=== PATIENT | male | born 1985 | race Caucasian/White ===

== ENCOUNTER 2016-11-14 22:23 | Emergency (ER) | payer SELFPAY ==
[~2016-11-14 22:23] MED LIST: NORCO 5/325 TAB1 TAB PO
[2016-11-14 23:08] LABS: BASO % 0.2 % (0-2); EOS % 0.7 % (0-7); EOSINOPHIL ABSOLUTE COUNT 0.1 tho/cmm (0.0-0.7); HGB-HEMOGLOBIN 14.9 gm/dl (13.5-17.0); IMMATURE GRANULOCYTES ABSOLUTE 0.03 tho/cmm (0-0.03); IMMATURE GRANULOCYTES PERCENT 0.2 % (0-0.3); LYMPH % 3.8 % (20-45); LYMPH ABSOLUTE COUNT 0.5 tho/cmm (0.8-4.5); MCH (MEAN CORPUSCULAR HGB) 30.2 pg (28.0-32.0); MCHC MEAN CORPUSCULAR HGB CONC 35.5 % (32.0-36.0); MEAN PLATELET VOLUME 8.7 cmc (9.4-12.4); MONO % 4.1 % (0-12); MONOCYTE ABSOLUTE COUNT 0.6 tho/cmm (0.0-1.2); NEUTROPHIL ABSOLUTE COUNT 12.3 tho/cmm (1.6-8.0); NEUTROPHIL-AUTOMATED 12.3 tho/cmm (1.6-8.0); PLATELET COUNT 253 tho/cmm (150-450); RED BLOOD COUNT 4.94 mil/cmm (4.40-5.70); WHITE BLOOD COUNT 13.5 tho/cmm (4.0-10.0)
[2016-11-14 23:26] LABS: ALB/GLOB RATIO 0.7 (0.8-2.0); ALBUMIN 3.8 g/dl (3.5-5.0); ALKALINE PHOSPHATASE 131 U/L (33-138); ALT/SGPT 28 U/L (12-78); ANION GAP 12 mmol/L (0-20); AST/SGOT 24 U/L (10-40); BILIRUBIN,TOTAL 0.9 mg/dl (0.0-1.5); BLOOD UREA NITROGEN 14 mg/dl (6-24); CALCIUM 9.2 mg/dl (8.5-10.5); CARBON DIOXIDE-VENOUS 26 mmol/L (22-32); CHLORIDE 104 mmol/l (96-110); CREATININE 1.25 mg/dl (0.60-1.30); GLUCOSE 122 mg/dL (70-110); SODIUM 138 mmol/L (135-145); eGFR VALUE FOR BLACK 89 mL/Min
[2016-11-14 23:29] LABS: POTASSIUM 3.6 mmol/L (3.7-5.1)
[2016-11-14 23:34] LABS: PROCALCITONIN <0.05 ng/ml (0.05-0.09)
[2016-11-15 00:03] LABS: URINE BILIRUBIN NEGATIVE (NEG); URINE BLOOD NEGATIVE (NEG); URINE GLUCOSE (UA) NEGATIVE (NEG); URINE KETONE NEGATIVE (NEG); URINE LEUKOCYTE ESTERASE NEGATIVE (NEG); URINE NITRITE NEGATIVE (NEG); URINE PROTEIN NEGATIVE (NEG)
[2016-11-15 00:07] LABS: URINE APPEARANCE CLEAR; URINE COLOR YELLOW
[2016-11-15] MEDS ORDERED: ZITHROMAX250 M1 PO (00:24)
== END 2016-11-15 00:34 ==
LOC: EDMED 22:23
PROVIDERS: Emergency Medicine
DX: J18.9 Pneumonia, unspecified organism (principal); Z87.891 Personal history of nicotine dependence
CPT/HCPCS: J1200; J2765; J7030